=== PATIENT | female | born 1980 | race Caucasian/White ===

== ENCOUNTER 2022-02-13 07:04 | Inpatient (IN) ==
--- NOTE | 2022-02-13 07:24 | Emergency Department Note ---
History of Present Illness General Chief complaint: Abdominal Pain Stated complaint: PAIN IN ABD,MAJOR PAIN Time Seen by Provider: 02/13/22 07:23 History of Present Illness Maximum Pain Intensity: 8 This 41-year-old female presents today with her , for evaluation of abdominal pain and chest pain. Patient states her symptoms began last night before bed. She and her had intercourse and she had abdominal pain shortly after. She states she could not sleep much through the night. She could not find a comfortable position. She states the abdominal pain became worse. Pain is radiating to her right shoulder. She notes some chest discomfort and shortness of breath associated with her abdominal pain. No prior history of similar episode. She denies any history of ovarian cysts. History of 3 normal vaginal births. She states this pain is worse than labor pain. She was able to find some comfort lying on her left side last night, but this did not last. She denies any vomiting but is nauseated. She did move her bowels this morning without improvement of her pain. She denies any vaginal discharge. She notes intermittent spotting through her midcycle over the last 3 months, and has an appointment to see a new CLINIC RECEPTIONIST in a few months. She states her last parboiler left the [facility] practice as she has not seen anyone lately. She denies any abdominal trauma. She does have a history of celiac disease. She did not eat anything unusual yesterday. Home Medications Medication Instructions Recorded Confirmed Type ibuprofen 600 mg tablet 600 mg PO Q6H PRN fever or pain 02/14/22 Rx #30 tabs Allergies Allergy/AdvReac Type Severity Reaction Status Date / Time Penicillins Allergy Unknown Verified 02/13/22 15:37 Sulfa (Sulfonamide Allergy Unknown Verified 02/13/22 15:37 Antibiotics) Past Med/Surg History Medical History (Updated 02/18/22 @ 15:37 by Solomon Mondragon PA-C) No pertinent past medical history Surgical History (Updated 02/18/22 @ 15:23 by Solomon Mondragon PA-C) No pertinent past surgical history Family History (Updated 02/18/22 @ 15:23 by Solomon Mondragon PA-C) Other No pertinent family history Social History (Updated 02/18/22 @ 15:23 by Solomon Mondragon PA-C) Smoking Status: Never smoker Hearing Ability: Normal marital status: Current Living Situation: Alone and Family current occupational status: employed Feels Safe at Home: Yes Review of Systems A total of 10 systems reviewed and were otherwise negative Physical Exam Vital Signs Vital Signs - 24 hr 02/13/22 07:11 02/13/22 07:04 02/13/22 07:42 Temperature 36.8 C Temperature Source Temporal Artery Scan Pulse Rate 120 H Pulse Rate [Apical] 96 H Pulse Rate [Right Brachial] Pulse Rhythm Regular Pulse Rhythm [Right Brachial] Pulse Strength Normal Pulse Strength [Right Brachial] Respiratory Rate 20 22 Respiratory Effort / Characteristics Non-Labored Spontaneous Non-Labored Spontaneous Respiratory Depth Normal Normal Respiratory Pattern Regular Blood Pressure 125/86 Blood Pressure [Right Arm] 112/66 Blood Pressure Mean 99 Blood Pressure Mean [Right Arm] 81 Blood Pressure Position Sitting Blood Pressure Position [Right Arm] Sitting Pulse Oximetry 100 100 100 Oxygen Delivery Method Room Air Room Air Room Air Sepsis Recent Fever Within 48 Hours No Sepsis New/Unexplained Change in Mental Status N/A Sepsis Action Taken by Nursing No Action Required 02/13/22 09:04 02/13/22 11:15 02/13/22 13:38 Temperature Temperature Source Pulse Rate Pulse Rate [Apical] 76 Pulse Rate [Right Brachial] 80 83 Pulse Rhythm Pulse Rhythm [Right Brachial] Regular Regular Pulse Strength Pulse Strength [Right Brachial] Normal Normal Respiratory Rate 18 18 19 Respiratory Effort / Characteristics Non-Labored Spontaneous Non-Labored Spontaneous Non-Labored Spontaneous Respiratory Depth Normal Normal Normal Respiratory Pattern Regular Regular Blood Pressure Blood Pressure [Right Arm] 102/64 117/83 121/72 Blood Pressure Mean Blood Pressure Mean [Right Arm] 76 94 88 Blood Pressure Position Blood Pressure Position [Right Arm] Sitting Lying Pulse Oximetry 98 99 98 Oxygen Delivery Method Room Air Room Air Room Air Sepsis Recent Fever Within 48 Hours Sepsis New/Unexplained Change in Mental Status Sepsis Action Taken by Nursing General: Well-developed, well-nourished, middle-aged female, in no acute distress. Obvious discomfort. Laying on the bed. Alert and oriented. Skin: Warm and dry with good turgor. No rashes or lesions. No ecchymosis or erythema. The patient is not diaphoretic. No abrasions. HEENT: Normocephalic atraumatic. Eyes PERRLA, EOMI. No conjunctiva or scleral injection. Ears TMs intact bilaterally with good light reflexes. No erythema or bulging. No hemotympanum. Canals are patent. Nares patent bilaterally without turbinate enlargement. No significant drainage. No epistaxis. Oropharynx without erythema or exudate. Uvula midline, oral mucosa moist. No lesions present. Lymphatics are palpated without anterior or posterior chain e nlargement or tenderness. Heart: Heart RRR. No MGR. Peripheral pulses are 2+. Lungs: Lungs are clear to auscultation. No crackles rhonchi or wheezing. Good air movement. The patient is able to take a deep breath but this does cause abdominal pain. Abdomen: Abdomen was inspected, auscultated, and palpated. Bowel sounds present x 4 but infrequent. Soft, diffuse tenderness to palpation, especially over the epigastric area, suprapubic area, and right lower quadrant. No hepato- splenomegaly. No masses noted. Positive rebound, negative Quiroz sign. No specific pain over McBurney's point. No CVA tenderness. Musculoskeletal: Gross motor function of the upper and lower extremities is inta ct and unremarkable. No pain with palpation of her right shoulder. Good shoulder motion. Neurologic: Gross sensation is intact across the upper and lower extremities by soft touch. Course Administered Medications Discontinued Medications Bupivacaine HCl (Bupivacaine 0.5 % 5 Mg/1 Ml Mpf 30ml Vial) Confirm Administered Dose 30 ml .ROUTE .[facility] Stop: 02/13/22 14:46 Last Admin: 02/13/22 15:47 Dose: 20 ml Documented By: JORGE Hydromorphone HCl (Hydromorphone Inj 0.5 Mg/0.5 Ml Syr) 0.5 mg IV NOW STA Stop: 02/13/22 08:20 Last Admin: 02/13/22 08:30 Dose: 0.5 mg Documented By: MARCELINA Hydromorphone HCl (Hydromorphone Inj 0.5 Mg/0.5 Ml Syr) 0.5 mg IV NOW STA Stop: 02/13/22 11:24 Last Admin: 02/13/22 11:31 Dose: 0.5 mg Documented By: SUNNY Sodium Chloride (Nss 1000ml) 1,000 mls @ 125 mls/hr IV .Q8H STA Stop: 02/13/22 15:41 Last Admin: 02/13/22 07:54 Dose: 125 mls/hr Documented By: MARCELINA Lactated Ringer's (Lr) 1,000 mls @ 125 mls/hr IV .Q8H RAVEN Stop: 02/14/22 17:53 Last Admin: 02/14/22 06:27 Dose: 125 mls/hr Documented By: Infusion: 02/14/22 04:49 Dose: 125 mls/hr Documented By: Admin: 02/13/22 20:49 Dose: 125 mls/hr Documented By: ROBERT Ibuprofen (Ibuprofen 600 Mg Tab) 600 mg PO Q6H PRN PRN Reason: Pain & Pre PT Stop: 03/15/22 17:51 Last Admin: 02/14/22 06:27 Dose: 600 mg Documented By: Admin: 02/13/22 23:12 Dose: 600 mg Documented By: Admin: 02/13/22 19:23 Dose: 600 mg Documented By: ROBERT Ioversol (Optiray 350 100ml) 88 ml IV ONCE ONE Stop: 02/13/22 09:41 Last Admin: 02/13/22 09:41 Dose: 88 ml Documented By: JAVAN Miscellaneous ( Floseal Hemostatic Matrix 10ml) 10 ml TOP ONCE ONE Stop: 02/13/22 15:28 Last Admin: 02/13/22 15:28 Dose: 10 ml Documented By: JORGE Morphine Sulfate (Morphine Sulfate 4 Mg/Ml 1 Ml Carp\Vial) 4 mg IV NOW STA Stop: 02/13/22 07:43 Last Admin: 02/13/22 07:55 Dose: 4 mg Documented By: MARCELINA Ondansetron HCl (Ondansetron Inj 2 Mg/Ml 2 Ml Vial) 4 mg IV NOW STA Stop: 02/13/22 07:43 Last Admin: 02/13/22 07:55 Dose: 4 mg Documented By: MARCELINA Oxycodone HCl (Oxycodone Hcl Ir 5 Mg Tab (Immediate Release)) 5 mg PO Q4H PRN PRN Reason: MODERATE Pain (4,5,6) & Pre PT Stop: 02/27/22 17:51 Last Admin: 02/14/22 10:21 Dose: 5 mg Documented By: Admin: 02/14/22 04:42 Dose: 5 mg Documented By: Admin: 02/13/22 20:49 Dose: 5 mg Documented By: ROBERT Medical Decision Making Differential Diagnosis Acute appendicitis, cholecystitis, bowel perforation, colitis, celiac flare, ovarian cyst, ruptured ovarian cyst, vaginal tear, UTI, mass Cardiac event, pancreatitis Medical Records Attestation: I reviewed the patient's medical records. Home Medications Current Medication List: was personally reviewed by me Laboratory Data CBC, troponin, UA, lipase, and chemistry panel were obtained today. white count is 10.9. H&H are stable at 12.1 and 33.4. Platelets are 186,000. UA is unremarkable. Chemistry panel shows a low potassium of 3.1. It is otherwise u nremarkable. Lipase is normal. Troponin was normal. Urine was negative. Result diagrams: 02/14/22 10:01 02/13/22 07:30 Lab Results 02/13/22 02/13/22 02/13/22 Range/Units 07:20 07:20 07:30 WBC 10.87 H (4.8-10.8) K/ul RBC 3.80 L (3.93-5.22) M/uL Hgb 12.1 (12.0-16.0) g/dl Hct 33.4 L (34.1-44.9) % MCV 87.9 (80.0-100.0) fL MCH 31.8 (25.0-34.0) pg MCHC 36.2 H (32.0-36.0) g/dL RDW Std Deviation 39.6 (36.4-46.3) fL RDW Coeff of Yobani 12.3 (11.5-14.5) % Plt Count 186 (130-400) K/uL MPV 12.4 H (9.4-12.3) fL Immature Gran % (Auto) 0.2 % Neut % (Auto) 71.6 % Lymph % (Auto) 18.9 % Stewart % (Auto) 7.1 % Eos % (Auto) 1.7 % Baso % (Auto) 0.5 % Neut # (Auto) 7.79 H (1.4-6.5) K/uL Lymph # (Auto) 2.05 (1.2-3.4) K/uL Stewart # (Auto) 0.77 (0.24-0.82) K/uL Eos # (Auto) 0.19 (0-0.50) K/uL Baso # (Auto) 0.05 (0-0.2) K/uL Immature Gran # (Auto) 0.02 (0.00-0.02) K/uL Sodium (136-145) mmol/L Potassium (3.5-5.1) mmol/L Chloride (98-107) mmol/L Carbon Dioxide (21-32) mmol/L Anion Gap (3-11) BUN (6-23) mg/dl Creatinine (0.6-1.2) mg/dl Est Cr Clr Drug Dosing ml/min Est GFR ( Amer) ml/min Est GFR (Non-Af Amer) ml/min BUN/Creatinine Ratio (10-20) Glucose (70-99(Fasting)) mg/dl Calcium (8.5-10.1) mg/dl Total Bilirubin (0.2-1.0) mg/dl AST (13-39) U/L ALT (7-52) U/L Alkaline Phosphatase (34-104) U/L Troponin I High Sens (0-14) pg/ml Total Protein (6.0-8.3) gm/dl Albumin (3.4-5.0) gm/dl Globulin (2.5-4.0) gm/dl Albumin/Globulin Ratio (0.9-2) Lipase (11-82) U/L Urine Color Yellow Urine Appearance Clear (Clear) Urine pH >= 9.0 H (4.5-7.5) Ur Specific [place] 1.008 (1.000-1.030) Urine Protein Negative (Negative) Urine Glucose (UA) Negative (Negative) Urine Ketones Negative (Negative) Urine Blood Negative (Negative) Urine Nitrite Negative (Negative) Urine Bilirubin Negative (Negative) Urine Urobilinogen Negative (Negative) Ur Leukocyte Esterase Negative (Negative) Urine Test Negative (Negative) 02/13/22 Range/Units 07:30 WBC (4.8-10.8) K/ul RBC (3.93-5.22) M/uL Hgb (12.0-16.0) g/dl Hct (34.1-44.9) % MCV (80.0-100.0) fL MCH (25.0-34.0) pg MCHC (32.0-36.0) g/dL RDW Std Deviation (36.4-46.3) fL RDW Coeff of Yobani (11.5-14.5) % Plt Count (130-400) K/uL MPV (9.4-12.3) fL Immature Gran % (Auto) % Neut % (Auto) % Lymph % (Auto) % Stewart % (Auto) % Eos % (Auto) % Baso % (Auto) % Neut # (Auto) (1.4-6.5) K/uL Lymph # (Auto) (1.2-3.4) K/uL Stewart # (Auto) (0.24-0.82) K/uL Eos # (Auto) (0-0.50) K/uL Baso # (Auto) (0-0.2) K/uL Immature Gran # (Auto) (0.00-0.02) K/uL Sodium 136 (136-145) mmol/L Potassium 3.1 L (3.5-5.1) mmol/L Chloride 104 (98-107) mmol/L Carbon Dioxide 23 (21-32) mmol/L Anion Gap 9 (3-11) BUN 10 (6-23) mg/dl Creatinine 0.66 (0.6-1.2) mg/dl Est Cr Clr Drug Dosing 109.1 ml/min Est GFR ( Amer) 127.2 ml/min Est GFR (Non-Af Amer) 109.7 ml/min BUN/Creatinine Ratio 15.2 (10-20) Glucose 125 H (70-99(Fasting)) mg/dl Calcium 8.1 L (8.5-10.1) mg/dl Total Bilirubin 0.4 (0.2-1.0) mg/dl AST 19 (13-39) U/L ALT 19 (7-52) U/L Alkaline Phosphatase 47 (34-104) U/L Troponin I High Sens 4.2 (0-14) pg/ml Total Protein 6.9 (6.0-8.3) gm/dl Albumin 3.9 (3.4-5.0) gm/dl Globulin 3.0 (2.5-4.0) gm/dl Albumin/Globulin Ratio 1.3 (0.9-2) Lipase 24 (11-82) U/L Urine Color Urine Appearance (Clear) Urine pH (4.5-7.5) Ur Specific [place] (1.000-1.030) Urine Protein (Negative) Urine Glucose (UA) (Negative) Urine Ketones (Negative) Urine Blood (Negative) Urine Nitrite (Negative) Urine Bilirubin (Negative) Urine Urobilinogen (Negative) Ur Leukocyte Esterase (Negative) Urine Test (Negative) Imaging Data My Impression: Acute abdominal x-ray series including the chest, was obtained today. There is no free air or evidence of bowel obstruction. No cardiopulmonary findings. This was reviewed by me and read by radiology. Abdomen pelvis CT imaging was obtained with IV contrast. This shows moderate hemoperitoneum within the abdominal cavity and pelvis. This is suggestive of a hemorrhagic right ovarian cyst. Follow-up H&H and gynecology evaluation were recommended. Perihepatic and perisplenic hemoperitoneum were noted. Radiologist's Impression: Abdomen/Pelvis CT 02/13/22 08:18 CT OF THE ABDOMEN AND PELVIS WITH CONTRAST CLINICAL HISTORY: Abdominal and pelvic pain. Negative test. COMPARISON STUDY: Abdominal series performed earlier today. TECHNIQUE: Following IV administration of 88 mL of Optiray, axial images of the abdomen and pelvis were obtained from the lung bases to the proximal femurs. Images were reviewed in the axial, sagittal, and coronal planes. IV contrast was administered without complication. Automated exposure control was utilized for the study. A dose lowering technique was utilized adhering to the principles of ALARA. CT DOSE: 299.07 mGy.cm FINDINGS: Lung bases are unremarkable. No pneumatosis, free air or portal venous gas is present. Liver, spleen, adrenal glands, kidneys and pancreas are unremarkable. There is no evidence for a bowel obstruction. The appendix is not well visualized. Major vasculature is patent. Note is made of moderate complex fluid within the abdomen and pelvis. This is densest within the pelvis. This represents hemoperitoneum originating from the pelvis. A 2.2 cm hypodense right adnexal lesion is present. Perihepatic and perisplenic hemoperitoneum is noted. Skeletal structures are unremarkable. IMPRESSION: Moderate hemoperitoneum within the abdomen and pelvis. Given negative test, the source is likely a hemorrhagic right ovarian cyst, measuring 2.2 cm. Follow-up H&H levels is recommended. Findings discussed with Solomon Mondragon at time of dictation. ACT 112: Negative or not required by law. Electronically signed by: Raza Toscano M.D. 02/13/2022 10:08 AM Blood Pressure Blood Pressure Findings: Low blood pressure MDM Narrative Patient was evaluated in A3. Conservative care measures were discussed. IV was established. Labs were obtained. Patient was placed on a cardiac rehab nurse and remained in a sinus rhythm with a rate in the 50s. Labs showed a stable H&H as well as no significant elevation in white count. Liver function and kidney function tests were unremarkable. Lipase was also unremarkable. Urine was negative. Troponin was normal. Abdominal x-ray series was unremarkable. No evidence of free air. CT scan imaging of the abdomen pelvis was obtained with IV contrast. This was suggestive of the hemorrhagic ovarian cyst. Patient did receive morphine 4 mg IV and Zofran 4 mg IV without any improvement. She was then given Dilaudid 0.5 mg IV with mild improvement in her pain. She did require additional dosing of Dilaudid 0.5 mg IV for pain control. She was hydrated with 1 L normal sterile saline IV bolus. Given her significant discomfort as well as her laboratory findings, I did consult Dr. Kemp. He did come to the ER to evaluate the patient. Please see his dictation for final management. Patient was thought to be best managed by operative intervention. Patient was in agreement. She remained n.p.o. while in the ED. She was taken to the OR. Patient was seen in conjunction with Dr. Diaz, who also evaluated the patient and concurred with today's diagnosis and treatment plan. Impression & Plan Hemoperitoneum Discharge Plan Visit Data Chief Complaint: Abdominal Pain Stated Complaint: PAIN IN ABD,MAJOR PAIN ED Provider: Usman Diaz ED Midlevel Provider: Solomon Mondragon Discharge Problem: Hemoperitoneum Patient Disposition: Admitted As Inpatient Condition: Good Discharge Instructions Interventions: ED Discharge Assessment Last Done: 02/13/22 13:40
[2022-02-13] MEDS ORDERED: MoRPHine SULFATE 4 MG/ML 1 ML CARP\\VIAL IV STA (07:42)
[2022-02-13] MEDS ORDERED: SODIUM CHLORIDE 0.9% 1000ML 1,000 ML IV STA (07:42)
[2022-02-13] MEDS ORDERED: ONDANSETRON INJ 2 MG/ML 2 ML VIAL IV STA (07:42)
[2022-02-13 07:55] LABS: Basophils # (auto) 0.05 K/uL (0-0.2); Basophils % (auto) 0.5 %; Eosinophils # (auto) 0.19 K/uL (0-0.50); Eosinophils % (auto) 1.7 %; Hematocrit (blood only) 33.4 % (34.1-44.9); Hemoglobin 12.1 g/dl (12.0-16.0); Immature Granulocytes # (auto) 0.02 K/uL (0.00-0.02); Immature Granulocytes % (auto) 0.2 %; Lymphocytes # (auto) 2.05 K/uL (1.2-3.4); Lymphocytes % (auto) 18.9 %; Mean Corpuscular Hemoglobin 31.8 pg (25.0-34.0); Mean Corpuscular Hgb Conc 36.2 g/dL (32.0-36.0); Mean Corpuscular Volume 87.9 fL (80.0-100.0); Mean Platelet Volume 12.4 fL (9.4-12.3); Monocytes # (auto) 0.77 K/uL (0.24-0.82); Monocytes % (auto) 7.1 %; Neutrophils # (auto) 7.79 K/uL (1.4-6.5); Neutrophils % (auto) 71.6 %; Platelet Count 186 K/uL (130-400); RDW Coefficient of Variation 12.3 % (11.5-14.5); RDW Standard Deviation 39.6 fL (36.4-46.3); White Blood Count 10.87 K/ul (4.8-10.8)
[2022-02-13 08:06] LABS: Pregnancy Test, Urine Negative (Negative)
[2022-02-13 08:08] LABS: Appearance Urine Clear (Clear); Bilirubin Urine Negative (Negative); Blood Urine Negative (Negative); Color Urine Yellow; Glucose Urine UA Negative (Negative); Ketones Urine Negative (Negative); Protein Urine Negative (Negative); Specific Gravity Urine 1.008 (1.000-1.030); pH Urine >= 9.0 (4.5-7.5)
[2022-02-13 08:09] LABS: Leukocyte Esterase Urine Negative (Negative); Nitrite Urine Negative (Negative); Urobilinogen Urine Negative (Negative)
[2022-02-13] MEDS ORDERED: HYDROmorphone INJ 0.5 MG/0.5 ML SYR IV STA ×2 (08:19→11:23)
[2022-02-13 08:24] LABS: Albumin Globulin Ratio 1.3 (0.9-2); Albumin Level 3.9 gm/dl (3.4-5.0); BUN Creatinine Ratio 15.2 (10-20); Bilirubin,Total 0.4 mg/dl (0.2-1.0); Calcium 8.1 mg/dl (8.5-10.1); Creatinine Clr Calc Pharmacy 109.1 ml/min; Est GFR (African American) 127.2 ml/min; Est GFR (Non-African American) 109.7 ml/min; Potassium 3.1 mmol/L (3.5-5.1); Total Protein 6.9 gm/dl (6.0-8.3)
[2022-02-13 08:26] LABS: Troponin I High Sensitivity 4.2 pg/ml (0-14)
--- NOTE | 2022-02-13 08:57 | XRay Report ---
PA CHEST RADIOGRAPH AND UPRIGHT AND SUPINE AP RADIOGRAPHS OF THE ABDOMEN CLINICAL HISTORY: abdominal pain, R shoulder pain COMPARISON STUDY: No previous studies for comparison. FINDINGS: Lung volumes are normal. There is no pneumothorax or pleural effusion. No consolidation or evidence for pulmonary edema. Cardiac size is normal. Mediastinal contours are normal. No evidence f or free air. Bowel gas pattern is unremarkable. IMPRESSION: 1. No free air or evidence of bowel obstruction. 2. No acute cardiopulmonary findings. ACT 112: Negative or not required by law. Electronically signed by: Raza Toscano M.D. 02/13/2022 8:56 AM
[2022-02-13] MEDS ORDERED: OPTIRAY 350 100ml IV ONE (09:40)
--- NOTE | 2022-02-13 10:10 | CT Scan Report ---
CT OF THE ABDOMEN AND PELVIS WITH CONTRAST CLINICAL HISTORY: Abdominal and pelvic pain. Negative test. COMPARISON STUDY: Abdominal series performed earlier today. TECHNIQUE: Following IV administration of 88 mL of Optiray, axial images of the abdomen and pelvis we re obtained from the lung bases to the proximal femurs. Images were reviewed in the axial, sagittal, and coronal planes. IV contrast was administered without complication. Automated exposure control wa s utilized for the study. A dose lowering technique was utilized adhering to the principles of ALARA . CT DOSE: 299.07 mGy.cm FINDINGS: Lung bases are unremarkable. No pneumatosis, free air or portal venous gas is present. Live r, spleen, adrenal glands, kidneys and pancreas are unremarkable. There is no evidence for a bowel ob struction. The appendix is not well visualized. Major vasculature is patent. Note is made of moderate complex fluid within the abdomen and pelvis. This is densest within the pelvis. This represents hemo peritoneum originating from the pelvis. A 2.2 cm hypodense right adnexal lesion is present. Perihepat ic and perisplenic hemoperitoneum is noted. Skeletal structures are unremarkable. IMPRESSION: Moderate hemoperitoneum within the abdomen and pelvis. Given negative test, th e source is likely a hemorrhagic right ovarian cyst, measuring 2.2 cm. Follow-up H&H levels is recomm ended. Findings discussed with Solomon Mondragon at time of dictation. ACT 112: Negative or not required by law. Electronically signed by: Raza Toscano M.D. 02/13/2022 10:08 AM
--- NOTE | 2022-02-13 13:35 | Anesthesiology Consultation ---
Date of Service February 13, 2022 Assessment & Plan (1) Encounter for pre-operative examination: Chart Review Chart Review: entry level chemist initiated History Surgery Operation Date: 02/13/22 14:00 Proposed Procedures p Laparoscopic Operative - Jass Kemp MD Height/Weight Height: 5 ft 7 in Weight: 68.2 kg Medications Active Medications Generic Name Dose Route Start Last Admin Trade Name Freq PRN Reason Stop Dose Admin Sodium Chloride 1,000 mls @ 125 mls/hr 02/13/22 07:42 02/13/22 07:54 Nss 1000ml IV 02/13/22 15:41 125 mls/hr .Q8H STA Administration Social History Smoking Status: Never smoker Physical Exam Vital Signs Last Vital Signs Temp 98.2 F 02/13/22 07:11 Pulse 80 02/13/22 11:15 Resp 18 02/13/22 11:15 BP 117/83 02/13/22 11:15 Pulse Ox 99 02/13/22 11:15 O2 Del Method 02/13/22 11:15 Testing Laboratory Results 02/13/22 07:30 02/13/22 07:30 Urine Color Yellow 02/13/22 07:20 Urine Appearance Clear (Clear) 02/13/22 07:20 Urine pH >= 9.0 (4.5-7.5) H 02/13/22 07:20 Ur Specific [employer] 1.008 (1.000-1.030) 02/13/22 07:20 Urine Protein Negative (Negative) 02/13/22 07:20 Urine Glucose (UA) Negative (Negative) 02/13/22 07:20 Urine Ketones Negative (Negative) 02/13/22 07:20 Urine Nitrite Negative (Negative) 02/13/22 07:20 Ur Leukocyte Esterase Negative (Negative) 02/13/22 07:20 Urine Test Negative (Negative) 02/13/22 07:20 02/13/22 07:20 Urine Test Negative
[2022-02-13] MEDS ORDERED: ONDANSETRON INJ 2 MG/ML 2 ML VIAL IV PRN ×2 (13:45→14:07)
[2022-02-13] MEDS ORDERED: PROPOFOL IV EMULSION 10 MG/ML 20 ML VIAL IV ONE (13:52)
[2022-02-13] MEDS ORDERED: DEXAMETHASONE SOD INJ 4 MG/ML VIAL ONE (13:52)
[2022-02-13] MEDS ORDERED: fentaNYL citrate 100 MCG/2 ML VIAL ONE ×4 (13:52→15:42)
[2022-02-13] MEDS ORDERED: MIDAZOLAM HCL 1 MG/ML 2ML VIAL ONE (13:52)
[2022-02-13] MEDS ORDERED: ONDANSETRON INJ 2 MG/ML 2 ML VIAL ONE (13:52)
[2022-02-13] MEDS ORDERED: LACTATED RINGER'S 1,000 ML IV SCH (14:00)
--- NOTE | 2022-02-13 14:04 | History & Physical Report ---
Date of Service February 13, 2022 Assessment & Plan (1) Hemoperitoneum: Plan Operative laparoscopy planned Discussed with patient and option for conservative management but due to the increased pain will opt for surgery History of Present Illness Chief Complaint: abdominal pain Primary Care Provider: Melissa Loera PA-C 41 F [id number] LMP 2 weeks ago regular with acute onset last night starting after intercourse and progressively worsening thru the night and into this morning. Patient went to bed and woke in middle of night and had something to eat and was unable to find a comfortable position to alleviate the pain. She had a bowel movement and no nausea or vomiting noted. No vaginal bleeding. had vasectomy and urine test tis negative. She came to the ER and was evaluated and found to have hemoperitoneum with cyst on right ovary. No prior briar cutter history. 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 neg Review of Systems All systems reviewed & are unremarkable except as noted in HPI & below Physical Exam Constitutional: WD/WN, vitals as above Eyes: PERRL, conjunctivae normal, anicteric sclerae Respiratory: normal respiratory effort, lungs clear to auscultation Cardiovascular: RRR, no murmur, no edema Gastrointestinal (Abdomen): Inspection/Auscultation: abdomen normal to inspection no rebound or guarding but painful with deep palpation Musculoskeletal: Extremities: extremities normal to inspection Skin: no rashes, warm and dry Neurologic: patellar DTR's 2+ bilat, sensation intact Psychiatric: A+Ox3, euthymic affect Results & Data ([facility]) Vital Signs (Past 12 Hours) Vital Signs Temp Pulse Pulse Pulse Resp BP BP 02/13/22 13:38 83 19 121/72 02/13/22 11:15 80 18 117/83 02/13/22 09:04 76 18 102/64 02/13/22 07:42 02/13/22 07:04 96 H 22 112/66 02/13/22 07:11 36.8 C 120 H 20 125/86 Pulse Ox O2 Del Method 02/13/22 13:38 98 Room Air 02/13/22 11:15 99 Room Air 02/13/22 09:04 98 Room Air 02/13/22 07:42 100 Room Air 02/13/22 07:04 100 Room Air 02/13/22 07:11 100 Room Air Laboratory Results Laboratory Results - last 72 hr 02/13/22 02/13/22 02/13/22 07:20 07:20 07:30 WBC 10.87 H RBC 3.80 L Hgb 12.1 Hct 33.4 L MCV 87.9 MCH 31.8 MCHC 36.2 H RDW Std Deviation 39.6 RDW Coeff of Yobani 12.3 Plt Count 186 MPV 12.4 H Immature Gran % (Auto) 0.2 Neut % (Auto) 71.6 Lymph % (Auto) 18.9 [place] % (Auto) 7.1 Eos % (Auto) 1.7 Baso % (Auto) 0.5 Neut # (Auto) 7.79 H Lymph # (Auto) 2.05 [place] # (Auto) 0.77 Eos # (Auto) 0.19 Baso # (Auto) 0.05 Immature Gran # (Auto) 0.02 Sodium Potassium Chloride Carbon Dioxide Anion Gap BUN Creatinine Est Cr Clr Drug Dosing Est GFR ( Amer) Est GFR (Non-Af Amer) BUN/Creatinine Ratio Glucose Calcium Total Bilirubin AST ALT Alkaline Phosphatase Troponin I High Sens Total Protein Albumin Globulin Albumin/Globulin Ratio Lipase Urine Color Yellow Urine Appearance Clear Urine pH >= 9.0 H Ur Specific [place] 1.008 Urine Protein Negative Urine Glucose (UA) Negative Urine Ketones Negative Urine Blood Negative Urine Nitrite Negative Urine Bilirubin Negative Urine Urobilinogen Negative Ur Leukocyte Esterase Negative Urine Test Negative 02/13/22 07:30 WBC RBC Hgb Hct MCV MCH MCHC RDW Std Deviation RDW Coeff of Yobani Plt Count MPV Immature Gran % (Auto) Neut % (Auto) Lymph % (Auto) [place] % (Auto) Eos % (Auto) Baso % (Auto) Neut # (Auto) Lymph # (Auto) [place] # (Auto) Eos # (Auto) Baso # (Auto) Immature Gran # (Auto) Sodium 136 Potassium 3.1 L Chloride 104 Carbon Dioxide 23 Anion Gap 9 BUN 10 Creatinine 0.66 Est Cr Clr Drug Dosing 109.1 Est GFR ( Amer) 127.2 Est GFR (Non-Af Amer) 109.7 BUN/Creatinine Ratio 15.2 Glucose 125 H Calcium 8.1 L Total Bilirubin 0.4 AST 19 ALT 19 Alkaline Phosphatase 47 Troponin I High Sens 4.2 Total Protein 6.9 Albumin 3.9 Globulin 3.0 Albumin/Globulin Ratio 1.3 Lipase 24 Urine Color Urine Appearance Urine pH Ur Specific [place] Urine Protein Urine Glucose (UA) Urine Ketones Urine Blood Urine Nitrite Urine Bilirubin Urine Urobilinogen Ur Leukocyte Esterase Urine Test Diagnostic Findings CT scan with moderate hemoperitoneum noted Code Status & VTE Plan VTE Prophylaxis Plan VTE Prophylaxis will be ordered: No
[2022-02-13] MEDS ORDERED: fentaNYL citrate 100 MCG/2 ML VIAL IV PRN (14:07)
[2022-02-13] MEDS ORDERED: ePHEDrine sulfate 50 MG/ML AMP IV PRN (14:07)
[2022-02-13] MEDS ORDERED: ATROPINE SULFATE 0.1 MG/ML 10ML SYR IV PRN (14:07)
[2022-02-13] MEDS ORDERED: BUPIVACAINE 0.5 % 5 MG/1 ML MPF 30ML VIAL ONE (14:45)
[2022-02-13] MEDS ORDERED: FLOSEAL HEMOSTATIC MATRIX 10ML TOP ONE (15:27)
[2022-02-13] MEDS ORDERED: GLYCOPYRROLATE 0.2 MG/ML VIAL ONE (15:45)
[2022-02-13] MEDS ORDERED: NEOSTIGMINE METHYLSULFATE 1 MG/ML 10ML VIAL ONE (15:45)
--- NOTE | 2022-02-13 16:19 | Post Operative Brief Note ---
Immediate Post Op Note v1 Date of Surgery February 13, 2022 Pre & Post Diagnosis Operation Date: 02/13/22 14:00 Pre-Op Diagnosis: (1) Hemoperitoneum Post-Op Diagnosis: (1) Hemoperitoneum I identified the patient and participated in the time-out.: Yes Procedure Operation Date: 02/13/22 14:00 Actual Procedures p Laparoscopy, with drainage of hemoperitonium and removal of ovarian cyst(Not Applicable) - Jass Kemp MD Surgeon Jass Kemp MD Deicer Tester IVETT Ayers Estimated Blood Loss 1,000 Findings Consistent with Post-Op Diagnosis right hemorrhagic ovarian cyst hemoperitoneum Fluids 1700 ml Drains Alejandre Catheter Anesthesia Type General Complications none Disposition Accompanied Patient To Recovery: Yes Overlapping Procedure I was present for: the critical portions of procedure. I was immediately available: during the entire case. Back up surgeon: was not required during procedure.
--- NOTE | 2022-02-13 16:41 | Anesthesiology Progress Note ---
Date of Service February 13, 2022 Anesthesia Post Procedure Vital Signs Vital Signs: Temp Pulse Pulse Pulse Resp BP BP 02/13/22 16:30 54 L 15 119/71 02/13/22 16:20 64 20 113/72 02/13/22 16:10 97.2 F L 71 18 108/79 02/13/22 13:38 83 19 121/72 02/13/22 11:15 80 18 117/83 02/13/22 09:04 76 18 102/64 02/13/22 07:42 02/13/22 07:04 96 H 22 112/66 02/13/22 07:11 98.2 F 120 H 20 125/86 Pulse Ox O2 Del Method O2 Flow Rate 02/13/22 16:30 100 Nasal Cannula 2 02/13/22 16:20 100 Nasal Cannula 2 02/13/22 16:10 100 Nasal Cannula 2 02/13/22 13:38 98 Room Air 02/13/22 11:15 99 Room Air 02/13/22 09:04 98 Room Air 02/13/22 07:42 100 Room Air 02/13/22 07:04 100 Room Air 02/13/22 07:11 100 Room Air Pain Intensity Abdomen: Pain Intensity: 4 Transfer of Care Handoff Completed per policy Notes Mental Status: alert / awake / arousable and participated in evaluation Patient Amnestic to Procedure: Yes Nausea / Vomiting: adequately controlled Pain: adequately controlled Airway Patency, RR, SpO2: stable & adequate BP & HR: stable & adequate Hydration State: stable & adequate Anesthetic Complications: no major complications apparent and Pt Satisfied with anesthetic care
[2022-02-13] MEDS ORDERED: MoRPHine SULFATE 2 MG/ML CARP IV PRN (17:52)
[2022-02-13] MEDS ORDERED: KETOROLAC 30 MG/ML VIAL IV PRN (17:52)
[2022-02-13] MEDS ORDERED: MoRPHine SULFATE 4 MG/ML 1 ML CARP\\VIAL IV PRN (17:52)
[2022-02-13] MEDS ORDERED: ACETAMINOPHEN 325 MG TAB PO PRN (17:52)
--- NOTE | 2022-02-13 19:00 | Operative Report (OR) ---
DATE OF SURGERY: 02/13/2022. PREOPERATIVE DIAGNOSES: Hemoperitoneum and ruptured hemorrhagic ovarian cyst on the right. POSTOPERATIVE DIAGNOSES: Hemoperitoneum and ruptured hemorrhagic ovarian cyst on the right. PROCEDURES: Operative laparoscopy with evacuation of hemoperitoneum and cautery of ruptured right he morrhagic cyst. SURGEON: Jass Kemp MD. DOCUMENT CONTROL COORDINATOR: RN. ANESTHESIA: General. COMPLICATIONS: None. FINDINGS: Hemoperitoneum and hemorrhagic ovarian cyst on the right. DRAINS: Alejandre. CLINICAL HISTORY: The patient is a 41-year-old female, para 3-0-0-3, presents to the ER today with a cute onset of abdominal pain, generalized in all 4 quadrants with shoulder pain on the right. The pa tient noted pain last night after intercourse. She was unable to sleep and with position change, she was unable to get comfortable. She was seen in the ER this morning and diagnosed with hemoperitoneu m with a ruptured right ovarian cyst. The patient was taken to the OR after informed consent and consuelo bates was called. DESCRIPTION OF PROCEDURE: Under satisfactory general anesthesia, the patient was prepped and draped in the usual sterile fashion. A Alejandre catheter was placed. Attention was then directed abdominally where an infraumbilical stab wound was made. Veress needle was inserted. This was then tested and t hen the incision was widened after approximately 3 liters of carbon dioxide gas were instilled creati ng an artificial pneumoperitoneum. Trocar was inserted and laparoscope was inserted, identifying hem operitoneum. The gutters were filled with blood up to the liver margin. A 10 mm port was placed und er direct visualization in the midline. The [employer] teacher was then used to evacuate copious amoun ts of blood. The right ovary was identified and this was the source of the bleeding. A second 5 mm port was inserted on the left. Using a grasper, the ovary was then grasped and identified and the bi polar Kleppinger was then used to cauterize the bleeder. After this, irrigation was accomplished suc tioning out most of the blood. FloSeal was then placed on the ovarian tissue, controlling the bleedi ng. No active bleeding at the end of this procedure was known. All remaining instruments were then r emoved and the air was then allowed to escape. The 3 incisions abdominally were closed with a 0 Vicr yl deep sutures for the fascia, followed by 4-0 Monocryl sutures for the skin followed by Steri-Strip s and dressing. Alejandre catheter was removed in the OR. Final sponge, needle, and instrument count be ing correct, the patient was then placed supine on a stretcher. She was taken to the recovery room i n stable condition. Job ID: [id number]
[2022-02-13] MEDS: IBUPROFEN 600 MG TAB PO PRN ×2 (19:23→23:12)
[2022-02-13] MEDS: LACTATED RINGER'S 1,000 ML IV SCH (20:49)
[2022-02-13] MEDS: oxyCODONE HCL IR 5 MG TAB (IMMEDIATE RELEASE) PO PRN (20:49)
[2022-02-14] MEDS: oxyCODONE HCL IR 5 MG TAB (IMMEDIATE RELEASE) PO PRN ×2 (04:42→10:21)
[2022-02-14] MEDS: LACTATED RINGER'S 1,000 ML IV SCH (06:27)
[2022-02-14] MEDS: IBUPROFEN 600 MG TAB PO PRN (06:27)
[2022-02-14 10:10] LABS: Hematocrit (blood only) 28.3 % (34.1-44.9); Hemoglobin 9.5 g/dl (12.0-16.0); Mean Corpuscular Hemoglobin 30.1 pg (25.0-34.0); Mean Corpuscular Hgb Conc 33.6 g/dL (32.0-36.0); Mean Corpuscular Volume 89.6 fL (80.0-100.0); Mean Platelet Volume 11.9 fL (9.4-12.3); Platelet Count 152 K/uL (130-400); RDW Coefficient of Variation 12.5 % (11.5-14.5); RDW Standard Deviation 40.9 fL (36.4-46.3); Red Blood Count 3.16 M/uL (3.93-5.22); White Blood Count 14.45 K/ul (4.8-10.8)
--- NOTE | 2022-02-14 10:23 | Gynecologic Progress Note ---
Date of Service February 14, 2022 Assessment & Plan Admission and Anticipated Discharge Date Admission Date: February 13, 2022 Subjective doing much better today passing gas had BM OOB without dizziness or SOB Physical Exam Constitutional: WD/WN, vitals as above Gastrointestinal (Abdomen): Inspection/Auscultation: abdomen normal to inspection incisions c/d/i abdomen soft and non-tender Musculoskeletal: Extremities: extremities normal to inspection Neurologic: patellar DTR's 2+ bilat, sensation intact Psychiatric: A+Ox3, euthymic affect Results & Data ([facility]) Vital Signs (Past 12 Hours) Vital Signs Temp Pulse Resp BP Pulse Ox O2 Del Method 02/14/22 08:10 37.2 C 71 20 119/54 L 02/14/22 04:30 37.1 C 70 18 105/55 L 100 Room Air 02/13/22 23:10 37.2 C 67 18 101/55 L 97 Room Air Laboratory Results Laboratory Results - last 72 hr 02/13/22 02/13/22 02/13/22 07:20 07:20 07:30 WBC 10.87 H RBC 3.80 L Hgb 12.1 Hct 33.4 L MCV 87.9 MCH 31.8 MCHC 36.2 H RDW Std Deviation 39.6 RDW Coeff of Yobani 12.3 Plt Count 186 MPV 12.4 H Immature Gran % (Auto) 0.2 Neut % (Auto) 71.6 Lymph % (Auto) 18.9 [place] % (Auto) 7.1 Eos % (Auto) 1.7 Baso % (Auto) 0.5 Neut # (Auto) 7.79 H Lymph # (Auto) 2.05 [place] # (Auto) 0.77 Eos # (Auto) 0.19 Baso # (Auto) 0.05 Immature Gran # (Auto) 0.02 Sodium Potassium Chloride Carbon Dioxide Anion Gap BUN Creatinine Est Cr Clr Drug Dosing Est GFR ( Amer) Est GFR (Non-Af Amer) BUN/Creatinine Ratio Glucose Calcium Total Bilirubin AST ALT Alkaline Phosphatase Troponin I High Sens Total Protein Albumin Globulin Albumin/Globulin Ratio Lipase Urine Color Yellow Urine Appearance Clear Urine pH >= 9.0 H Ur Specific [place] 1.008 Urine Protein Negative Urine Glucose (UA) Negative Urine Ketones Negative Urine Blood Negative Urine Nitrite Negative Urine Bilirubin Negative Urine Urobilinogen Negative Ur Leukocyte Esterase Negative Urine Test Negative SARS-CoV-2, RNA, NAAT 02/13/22 02/13/22 02/14/22 07:30 17:00 10:01 WBC 14.45 H RBC 3.16 L Hgb 9.5 L Hct 28.3 L MCV 89.6 MCH 30.1 MCHC 33.6 RDW Std Deviation 40.9 RDW Coeff of Yobani 12.5 Plt Count 152 MPV 11.9 Immature Gran % (Auto) Neut % (Auto) Lymph % (Auto) [place] % (Auto) Eos % (Auto) Baso % (Auto) Neut # (Auto) Lymph # (Auto) [place] # (Auto) Eos # (Auto) Baso # (Auto) Immature Gran # (Auto) Sodium 136 Potassium 3.1 L Chloride 104 Carbon Dioxide 23 Anion Gap 9 BUN 10 Creatinine 0.66 Est Cr Clr Drug Dosing 109.1 Est GFR ( Amer) 127.2 Est GFR (Non-Af Amer) 109.7 BUN/Creatinine Ratio 15.2 Glucose 125 H Calcium 8.1 L Total Bilirubin 0.4 AST 19 ALT 19 Alkaline Phosphatase 47 Troponin I High Sens 4.2 Total Protein 6.9 Albumin 3.9 Globulin 3.0 Albumin/Globulin Ratio 1.3 Lipase 24 Urine Color Urine Appearance Urine pH Ur Specific [place] Urine Protein Urine Glucose (UA) Urine Ketones Urine Blood Urine Nitrite Urine Bilirubin Urine Urobilinogen Ur Leukocyte Esterase Urine Test SARS-CoV-2, RNA, NAAT NEGATIVE
--- NOTE | 2022-02-15 05:44 | Electrocardiogram Report ---
Test Reason : Blood Pressure : / mmHG Vent. Rate : 090 BPM Atrial Rate : 090 BPM P-R Int : 128 ms QRS Dur : 072 ms QT Int : 350 ms P-R-T Axes : 080 070 053 degrees QTc Int : 428 ms Normal sinus rhythm with sinus arrhythmia Nonspecific ST abnormality Abnormal ECG No previous ECGs available Confirmed by Everton Aleaxnder ([id number]) on 02/15/2022 5:44:28 AM Referred By: NO PCP Confirmed By:Everton Alexander
--- NOTE | 2022-02-26 12:32 | Discharge Summary (DS) ---
DATE OF ADMISSION: 02/13/2022. DATE OF DISCHARGE: 02/14/2022. REASON FOR ADMISSION AND HOSPITAL COURSE: The patient is a 41-year-old female, para 3-0-0-3, present s to the ER with acute onset of abdominal pain and hemoperitoneum that was diagnosed by ultrasound. The patient underwent an operative laparoscopy with evacuation of hemoperitoneum and cautery of ruptu red right hemorrhagic cyst. The patient had about 1 liter of blood in her belly. She was stable pos top and she was discharged home the following morning stable and good condition. Regular diet on dis charge. Medications included Motrin for pain and followup will be in the office in 1 week for an inc ision check. Job ID: [id number]
== END 2022-02-14 10:45 | disposition home or self-care (01) | DRG 742 ==
LOC: ED 07:04 → OR 13:40 → 4E1 13:40